=== PATIENT | male | born 1995 | race Two or more races ===

== ENCOUNTER 2017-11-07 18:32 | Emergency (ER) | payer MEDICAID ==
[~2017-11-07] VITALS: Ht 152.4 cm; Wt 72.6 kg
[2017-11-07] MEDS ORDERED: ZYPREXA10 MG ORAL (18:43)
[2017-11-07 19:00] VITALS: BP 131/79
--- NOTE | 2017-11-07 19:29 | Emergency Room Report ---
History of Present Illness General Chief Complaint: Constipation Source: Patient Present Illness HPI 21-year-old male presents to the emergency department brought by caregiver for 4 out of 10 in severity abdominal pain in addition to inability to have bowel movement 3 weeks. Caregiver states that when she first began working with the patient he had constipation which was a year so ago. Caregiver states that patient approached her today complaining of abdominal pain and that since she found out that he had not had a bowel movement and along period of time. Denies nausea, vomiting, fevers, chills. Patient has history of depression/ psychosis for which he takes Zyprexa in addition to developmental delay. Patient reports no difficulty with urination. Denies CP, Palpitations, LOC, AMS , dizziness, Changes in Vision, Sensation, paresthesias, or a sudden severe headache. Allergies: Coded Allergies: No Known Allergies (Unverified , 11/07/17) Patient History Past Medical History: see triage record Past Surgical History: none Pertinent Family History: none Reviewed Nursing Documentation: PMH: Agreed; PSxH: Agreed Nursing Documentation-PMH Past Medical History: No History, Except For History Of Psychiatric Problem: Yes - Major Depression Review of Systems All Other Systems: negative except mentioned in HPI Physical Exam Vital Signs Date Time Temp Pulse Resp B/P (MAP) Pulse Ox O2 Delivery O2 Flow Rate FiO2 11/07/17 18:38 99.0 92 16 131/79 97 Room Air 99.0 Sp02 EP Interpretation: reviewed, normal General Appearance: no apparent distress, alert, GCS 15, non-toxic Head: normocephalic, atraumatic Eyes: bilateral eye normal inspection, bilateral eye PERRL ENT: hearing grossly normal, normal voice Neck: full range of motion Respiratory: lungs clear, normal breath sounds, speaking full sentences Cardiovascular #1: regular rate, rhythm Gastrointestinal: normal bowel sounds, non tender, soft, no guarding, no hernia , other - mild distention in lower abdomen Rectal: deferred Genitourinary: normal inspection, no CVA tenderness Musculoskeletal: back normal, gait/station normal, normal range of motion Neurologic: alert, oriented x3, responsive, motor strength/tone normal, sensory intact, normal gait, speech normal, grossly normal Psychiatric: judgement/insight normal Skin: normal color, no rash, warm/dry, well hydrated Medical Decision Making PA Attestation Dr. Gordon is my supervising Physician whom patient management has been discussed with. Diagnostic Impression: Primary Impression: Constipation Qualified Codes: K59.00 - Constipation, unspecified Additional Impressions: Renal calculi Abdominal pain Qualified Codes: R10.84 - Generalized abdominal pain ER Course 21-year-old male presents to the emergency department brought by caregiver for 4 out of 10 in severity abdominal pain in addition to inability to have bowel movement 3 weeks. Caregiver states that when she first began working with the patient he had constipation which was a year so ago. Caregiver states that patient approached her today complaining of abdominal pain and that since she found out that he had not had a bowel movement and along period of time. Denies nausea, vomiting, fevers, chills. Patient has history of depression/ psychosis for which he takes Zyprexa in addition to developmental delay. Patient reports no difficulty with urination. Denies CP, Palpitations, LOC, AMS , dizziness, Changes in Vision, Sensation, paresthesias, or a sudden severe headache. No changes in appetite. sleeve tailor has already given Lactulose which was rx'd by pt.'s PCP, milk of magnesia and Miralax with no relief. -pt. later reported to caregiver that he had one episode of vomiting today which he did not see the color and ended up swallowing. Ddx considered but are not limited to constipation , appendicitis, SBO, Cancer, or medication side effect just to name a few. Vital signs: are WNL, pt. is afebrile H&PE bowl sounds are normo active, mildly distended lower abdomen. ORDERS: -Abdominal KUB- Moderate bowel in the rectal vault with gas distention and feces in the sigmoid colon. ED INTERVENTIONS: -Fleet's Enema x 2 - NO BM with above interventions and pt. reports continued abdominal pain. DISCHARGE: At this time pt. is stable for d/c to home. Will provide printed patient care instructions, and any necessary prescriptions. Care plan and follow up instructions have been discussed with the patient prior to discharge. Other X-Ray Diagnostic Results Other X-Ray Diagnostic Results : X-Ray ordered: KUB # of Views/Limited Vs Complete: 2 View Indication: Pain EP Interpretation: Yes PA Xray: Interpretation reviewed Interpretation: no sbo, other - Feces in the rectal vault with gas throughout the colon. CT/MRI/US Diagnostic Results CT/MRI/US Diagnostic Results : Imaging Test Ordered: CT Abdomen and Pelvis No Constrast Impression "Impression: Prominent gas-filled, upper limits of normal caliber but not frankly dilated sigmoid colon, significance uncertain. Markedly distended bladder. Nonobstructive left renal calyceal calculus. Incidental finding small fat-containing umbilical hernia" Per official radiology report- Please see report for specific details. Last Vital Signs Date Time Temp Pulse Resp B/P (MAP) Pulse Ox O2 Delivery O2 Flow Rate FiO2 11/07/17 19:00 99.0 92 16 131/79 97 Room Air 99.0 Disposition: HOME, SELF-CARE Condition: Stable Signed Out To: Dr. Hutchinson Scripts Docusate Sodium* (COLACE*) 100 Mg Capsule 100 MG RECTAL THREE TIMES A DAY for 7 Days, CAP Prov: Jesus Hutchinson DO 11/08/17 Na Phos,M-B/Na Phos,Di-Ba* (FLEET ENEMA*) 133 Ml Enema 133 ML RECTAL DAILY, #3 ML 0 Refills Prov: Jesus Hutchinson DO 11/08/17 Patient Instructions: Constipation, Adult Additional Instructions: Take medications as directed. Follow up with a Primary Care Provider in 3-5 days, even if your symptoms have resolved. --Please review list of primary care clinics, if you do not already have a primary care provider Return sooner to ED if new symptoms occur, or current symptoms become worse. - Please note that this Emergency Department Report was dictated using Itaroendoscopic technician technology software, occasionally this can lead to erroneous entry secondary to interpretation by the dictation equipment. Shandra Barnett Nov 07, 2017 19:29
[2017-11-07] MEDS ORDERED: Fleet's Enema 133ml RECTAL ONE (20:00)
[2017-11-07] MEDS ORDERED: Fleet's Mineral Oil Enema RECTAL ONE (21:30)
[2017-11-07 23:21] VITALS: BP 118/65
[2017-11-08] MEDS ORDERED: FLEET ENEMA133 ML RECTAL (00:45)
[2017-11-08] MEDS ORDERED: COLACE100 MG RECTAL (00:46)
[2017-11-08 00:57] VITALS: BP 118/65
[2017-11-08 00:59] VITALS: BP 118/65
--- NOTE | 2017-11-08 08:36 | Diagnostic Imaging Report ---
Indication: Abdominal pain Technique: Supine view of the abdomen Comparison: none Findings: Unremarkable bowel gas pattern. Colon is gas-filled but no fercho gaseous distention of large or small bowel. No unusual masses or calcifications Impression: No acute process
--- NOTE | 2017-11-08 10:06 | Diagnostic Imaging Report ---
Indication: Abdominal pain and constipation for one week Technique: Spiral acquisitions obtained through the abdomen and pelvis. No oral contrast utilized, per emergency room physician request No IV contrast utilized, per emergency room physician request.. Multiplanar reconstructions were generated. Total dose length product 627.88 mGycm. CTDIvol(s) 12.33 mGy. Dose reduction achieved using automated exposure control Comparison: None Findings: The appendix is normal. The colon is gas-filled, upper limits of normal in caliber distally. No wall thickening. The rectum contains a mixture of fat attenuation and feces No small bowel distention. No free or loculated intraperitoneal gas or fluid is evident. The distal esophagus, stomach, duodenum are unremarkable. There is a small fat-containing umbilical hernia Lack of IV contrast limits assessment of solid organs. The liver, gallbladder, bile ducts, pancreas, spleen, adrenals, right kidney are unremarkable. The left kidney demonstrates a 3 mm calyceal calculus no hydronephrosis or hydroureter or ureteral calculi. The bladder is markedly distended. The included lung bases are clear. The bones are unremarkable. There is transitional lumbosacral anatomy. Impression: Prominent gas-filled, upper limits of normal caliber but not frankly dilated sigmoid colon, significance uncertain Markedly distended bladder Nonobstructive left renal calyceal calculus Incidental finding small fat-containing umbilical hernia This agrees with the preliminary interpretation provided overnight by [facility], with minor variations. The CT scanner at [facility] is accredited by the [employer] and the scans are performed using protocols designed to limit radiation exposure to as low as reasonably achievable to attain images of sufficient resolution adequate for diagnostic evaluation.
== END 2017-11-08 01:01 | disposition home or self-care (01) ==
LOC: EDBD 18:32 → EMR 19:25
DX: K59.00 Constipation, unspecified (principal); R10.84 Generalized abdominal pain; N20.0 Calculus of kidney; F32.9 Major depressive disorder, single episode, unspecified
CPT/HCPCS: 74018; 74176; 99284